=== PATIENT | female | born 1940 | race Caucasian/White ===

== ENCOUNTER 2019-10-09 02:06 | Inpatient (IN) ==
[2019-10-09 02:33] LABS: URINE SOURCE CATH
--- NOTE | 2019-10-09 02:33 | PROVIDER DOCUMENTATION ---
HPI-Neurological Disorder - General Stated Complaint: seizure Time Seen by Provider: 10/09/19 02:17 Source: family Unable to obtain history due to:: altered Allergies/Adverse Reactions: Patient Allergies Allergy/AdvReac Type Severity Reaction Status Date / Time No Known Allergies Allergy Verified 10/09/19 02:37 Home Medications: Home Medication List Medication Instructions Recorded Confirmed Last Taken Type Aspirin 325 mg PO DAILY 10/09/19 10/09/19 Unknown History Atorvastatin Calcium [Lipitor] 10 mg PO DAILY 10/09/19 10/09/19 Unknown History Escitalopram [Lexapro] 20 mg PO DAILY 10/09/19 10/09/19 Unknown History Memantine HCl [Namenda] 10 mg PO BID 10/09/19 10/09/19 Unknown History Metoprolol Succinate E.r. [Toprol 100 mg PO DAILY 10/09/19 10/09/19 Unknown History Xl] Pantoprazole [Protonix] 40 mg PO DAILY@0700 10/09/19 10/09/19 Unknown History Quetiapine Fumarate [Seroquel] 100 mg PO QHS 10/09/19 10/09/19 Unknown History Ranolazine [Ranexa] 1,000 mg PO BID 10/09/19 10/09/19 Unknown History Spironolactone [Aldactone] 25 mg PO DAILY 10/09/19 10/09/19 Unknown History - History of Present Illness-Neuro Nature of Presenting Problem: This 79 yo female presents via EMS after her sister was awakened by moaning and shaking. She thinks that she might have had a seizure. She would not respond initially, but started to come around when EMS arrived. She has some dementia and lives with her daughter in [place], but comes to stay with her sister at times. Severity: reports: severe Onset/Duration: reports: just prior to arrival Timing: reports: still present, improving Context: reports: found unresponsive by family Approximate time patient was last seen normal?: 21:00 Character of Altered Mental Status: reports: decreased responsiveness Any recent trauma/injury?: reports: none Character of Deficits: reports: impaired speech Gait Baseline: walks without assistance Similar Symptoms Previously?: No Recently seen or treated by another doctor?: No - Seizure First time to have a seizure?: Yes Witnessed seizure?: Yes (shaking and not responding) Episode details: reports: unknown duration Approximate time seizures began?: 02:00 Episode Frequency: no prior episodes Status Epilepticus: No Character of Seizure: reports: generalized shaking all over. denies: incontinent of urine, incontinent of stool Post-ictal Symptoms: reports: confusion Seizure related injury: none Review of Systems - Adult - REVIEW OF SYSTEMS - ADULT ROS:: unobtainable per condition Constitutional: reports: no symptoms reported Past History - Adult - PAST MEDICAL HISTORY-ADULT Review of Records: reports: Nursing Assessment Review Cardiovascular: reports: A-Fib, pacemaker Respiratory: reports: denies history Gastrointestinal: reports: denies history Genitourinary: reports: denies history Musculoskeletal: reports: arthritis Neurological: reports: Alzheimer's Psychiatric: reports: denies history Endocrine/Immune: reports: denies history Physical Exam- Neurological - Physical Exam-Neuro Initial Vital Signs Reviewed: Yes General Appearance: lethargic, slow to respond Eye Exam: bilateral eye: PERRL, EOMI HENMT: normocephalic/atraumatic, moist mucous membranes, normal ENT inspection, TMs normal, pharynx normal Head Injury: no evidence of injury Neck: non-tender, full range of motion, supple Respiratory: chest non-tender, lungs clear, normal breath sounds Cardiovascular: normal peripheral pulses, regular rate, rhythm, no edema Abdominal Exam: normal bowel sounds, non tender, soft, no organomegaly, no pulsatile mass Lymphatic: no adenopathy wireless consultant Exam: normal hearing Coordination/Gait: other (unable to assess) Motor/Sensory: other (unable to assess) Neurologic: other (unable to assess) Integumentary: normal color, normal turgor, warm/dry - [place]ow Coma Scale Best Eye Response: (1) no response Best Verbal Response: (1) no verbal response Best Motor Response: (5) localizes to pain Progress - PLAN OF CARE/RESULTS Progress/Plan/Lab Results: Vital Signs - 8 hr 10/09/19 02:15 10/09/19 02:19 10/09/19 02:23 Temperature Pulse Rate 99 H 75 76 Respiratory Rate 18 21 Blood Pressure 179/87 173/103 O2 Sat by Pulse Oximetry 95 10/09/19 02:26 10/09/19 02:30 10/09/19 02:45 Temperature 97.9 F Pulse Rate 75 74 91 H Respiratory Rate 21 19 18 Blood Pressure 173/103 O2 Sat by Pulse Oximetry 96 96 Laboratory Results - last 24 hr 10/09/19 10/09/19 10/09/19 02:27 02:27 02:27 WBC RBC Hgb Hct MCV MCH MCHC RDW Std Deviation Plt Count MPV Immature Gran % (Auto) Neut % (Auto) Lymph % (Auto) [place] % (Auto) Eos % (Auto) Baso % (Auto) Immature Gran # (Auto) Neut # (Auto) Lymph # (Auto) [place] # (Auto) Eos # (Auto) Baso # (Auto) Specimen Type Sample Site pH pCO2 pO2 HCO3 Base Excess Oxyhemoglobin ABG O2 Sat (Calculated) ABG O2 Saturation ABG Carboxyhemoglobin ABG Methemoglobin Nicola Test A-a O2 Difference Total Hemoglobin Lactate Liter Flow Blood Gas Modality FiO2 % Sodium 141 Potassium 4.5 Chloride 103 Carbon Dioxide 21 L Anion Gap 17 BUN 16 Creatinine 1.3 H Estimated GFR/1.73 m2 39 BUN/Creatinine Ratio 12 Glucose 169 H Calculated Osmolality 286 Calcium 8.6 L Total Bilirubin 0.26 AST 12 ALT 7 L Alkaline Phosphatase 133 H Ammonia Creatine Kinase 18 L Troponin T < 0.010 Total Protein 5.6 L Albumin 3.8 Globulin 1.8 Albumin/Globulin Ratio 2.1 Urine Source CATH Urine Color YELLOW Urine Turbidity CLEAR Urine pH 5.5 Ur Specific [place] 1.006 Urine Protein NEGATIVE Ur Glucose (Stick) NEGATIVE Ur Ketones (Stick) NEGATIVE Urine Blood NEGATIVE Urine Nitrite NEGATIVE Urine Bilirubin NEGATIVE Urobilinogen Dipstick NORMAL Urine Leukocytes NEGATIVE Urine WBC (Auto) <10 Urine RBC (Auto) <10 U Epithel Cells (Auto) <10 Urine Bacteria (Auto) NEGATIVE 10/09/19 10/09/19 10/09/19 02:53 03:35 03:35 WBC 13.13 H RBC 4.39 Hgb 13.2 Hct 41.4 MCV 94.3 MCH 30.1 MCHC 31.9 L RDW Std Deviation 12.8 Plt Count 143 MPV 11.1 H Immature Gran % (Auto) 0.4 Neut % (Auto) 66.5 Lymph % (Auto) 23.9 [place] % (Auto) 5.5 Eos % (Auto) 3.5 Baso % (Auto) 0.2 Immature Gran # (Auto) 0.05 H Neut # (Auto) 8.74 H Lymph # (Auto) 3.14 [place] # (Auto) 0.72 H Eos # (Auto) 0.46 Baso # (Auto) 0.02 Specimen Type ARTERIAL Sample Site R BRACHIAL pH 7.26 L pCO2 50 H pO2 76 HCO3 21.0 Base Excess -4.9 L Oxyhemoglobin 94.1 L ABG O2 Sat (Calculated) 16.7 ABG O2 Saturation 96.5 ABG Carboxyhemoglobin 1.50 ABG Methemoglobin 1.0 Nicola Test YES A-a O2 Difference 90.0 Total Hemoglobin 12.6 Lactate 4.40 H* Liter Flow 3.0 Blood Gas Modality [place]A FiO2 % 32.0 Sodium Potassium Chloride Carbon Dioxide Anion Gap BUN Creatinine Estimated GFR/1.73 m2 BUN/Creatinine Ratio Glucose Calculated Osmolality Calcium Total Bilirubin AST ALT Alkaline Phosphatase Ammonia 30 Creatine Kinase Troponin T Total Protein Albumin Globulin Albumin/Globulin Ratio Urine Source Urine Color Urine Turbidity Urine pH Ur Specific [place] Urine Protein Ur Glucose (Stick) Ur Ketones (Stick) Urine Blood Urine Nitrite Urine Bilirubin Urobilinogen Dipstick Urine Leukocytes Urine WBC (Auto) Urine RBC (Auto) U Epithel Cells (Auto) Urine Bacteria (Auto) Orders Category Date Time Status CHEST-PORTABLE [RAD] Stat Exams 10/09/19 02:[address] HEAD W/O CONTRAST [CT] Stat Exams 10/09/19 02:24 Taken ABG [RESP] Routine Lab 10/09/19 03:35 Completed AMMONIA [CHEM] Stat Lab 10/09/19 03:35 Completed CBC WITH ELECTRONIC DIFF [HEME] Stat Lab 10/09/19 02:53 Completed CK PROFILE [SP CHEM] Stat Lab 10/09/19 02:27 Completed COMPREHENSIVE METABOLIC PANEL [CHEM] Stat Lab 10/09/19 02:27 Completed MAGNESIUM [CHEM] Stat Lab 10/09/19 04:04 Ordered TROPONIN T Stat Lab 10/09/19 02:27 Completed UA NIMS W/REFLEX CULT [URINALYSIS] Stat Lab 10/09/19 02:27 Completed 0.9% Sodium Chloride Inj [Ns] 1,000 ml Med 10/09/19 03:47 Active IV 999 mls/hr Levetiracetam [Keppra] 500 mg Med 10/09/19 03:10 Discontinued 0.9% Sodium Chloride Inj [Ns] 100 ml IV NOW Lorazepam [Ativan] Med 10/09/19 03:01 Discontinued 2 mg IV NOW ONE EKG [EKG] Stat Ther 10/09/19 02:38 Ordered Result Diagrams: 10/09/19 02:53 10/09/19 02:27 - REASSESSMENT Reassessment #1 Time Reassessed: 02:48 Status: worsening (Patient had jerking movements in CT whitnessed by the calibration technician. She is postictal) - EKG 1 Time of EKG reading by physician:: 02:54 EKG Read and Signed by:: Angel Rosales EKG Interpretation (*Must complete 3 of following elements*): Abnormal Rate: 74 Rhythm: paced [place]: left ST Wave: non-specific ST changes Prior EKG Comparison: no prior EKG - CONSULTS/PCP/HOSPITALIST Notification #1 *Consult/PCP/Hospitalist*: Dr Esquivel Time Discussed: 04:10 Consult Disposition: Will see in ED Departure - Departure Date of Disposition Decision: 10/09/19 Time of Disposition Decision: 04:09 DIAGNOSIS: New onset seizure Disposition: ADMITTED INPATIENT 09 Certified Medical Emergency: Emergent Condition: Fair Referrals and Follow-Ups: None,PCP [Primary Care Provider] - - Critical Care Note This patient required my direct & personal management of CC.: Yes Total Time (mins): 42 Critical Care Statement: This patient required my direct personal management to treat or rule out processes, the absence of which, could potentiallly result in sudden, clinically significant life or limb threatening deterioration. Attestation - Physician/ CRISTIAN Attestation Patient care was provided by Advanced Practice Provider:: No The physician spent face to face time with patient:: Yes Advanced Practice Provider documentation review:: Supervising physician onsite and consulted in the evaluation and care of this patient. The physician did have a face to face encounter with the patient.
[2019-10-09 02:44] LABS: BILIRUBIN URINE NEGATIVE (NEGATIVE); BLOOD URINE NEGATIVE (NEGATIVE); COLOR YELLOW; GLUCOSE URINE NEGATIVE (NEGATIVE); KETONE URINE NEGATIVE (NEGATIVE); LEUKOCYTES URINE NEGATIVE (NEGATIVE); NITRITE URINE NEGATIVE (NEGATIVE); PH URINE 5.5; PROTEIN URINE NEGATIVE (NEGATIVE); SP GRAVITY URINE 1.006; TURBIDITY URINE CLEAR (CLEAR); UROBILINOGEN URINE NORMAL (NORMAL)
[2019-10-09 02:46] LABS: UR EPITHELIAL CELLS <10 /HPF (<10); URINE BACTERIA NEGATIVE /HPF; URINE RBC <10 /HPF (<10); URINE WBC <10 /HPF (<10)
[2019-10-09] MEDS ORDERED: ATIVAN IV ONE (03:01)
[2019-10-09 03:05] LABS: ALB/GLOB RATIO 2.1; ALBUMIN 3.8 g/dL (3.5-5.0); CALCIUM 8.6 mg/dL (8.8-10.2); CREATININE 1.3 mg/dL (0.5-0.9); POTASSIUM 4.5 mmol/L (3.5-5.1); TOTAL BILIRUBIN 0.26 mg/dL (0.20-1.00); TOTAL PROTEIN 5.6 g/dL (6.3-8.3)
[2019-10-09] MEDS ORDERED: KEPPRA 500 MG in NS 100 ML IV ONE (03:10)
[2019-10-09 03:26] LABS: BASO# 0.02 X1000 (0.0-0.2); BASO% 0.2 % (0.0-0.8); EOS# 0.46 X1000 (0.0-0.7); EOS% 3.5 % (0.0-10.0); HEMATOCRIT 41.4 % (37.0-47.0); HEMOGLOBIN 13.2 g/dL (12.0-16.0); IMM GRAN# 0.05 X1000 (0.0-0.04); IMM GRAN% 0.4 % (0.0-0.5); LYMPH# 3.14 X1000 (1.2-3.4); LYMPH% 23.9 % (20.5-51.1); MCH 30.1 PG (27-31); MCHC 31.9 g/dL (33-37); MCV 94.3 FL (81-99); MONO# 0.72 X1000 (0.11-0.59); MONO% 5.5 % (1.7-9.3); MPV 11.1 FL (7.4-10.4); NEUT# 8.74 X1000 (1.4-6.5); NEUT% 66.5 % (42.2-75.2); PLT 143 X1000 (130-400); RBC 4.39 XMIL (4.2-5.4); RDW 12.8 % (11.5-14.5); WBC 13.13 X1000 (4.8-10.8)
[2019-10-09 03:44] LABS: ALLEN TEST YES; BE -4.9 mmoll (-3.0-3.0); BLOOD TYPE ARTERIAL; O2(CT) 16.7 mL/dL (15.0-23.0); O2HB 94.1 % (95.0-99.0); PCO2(98.6) 50 mmHg (35-45); PO2(98.6) 76 mmHg (60-100); SAMPLE BLOOD; SAO2 96.5 % (95.0-100.0); THB 12.6 g/dL (11.5-17.4); pH(98.6) 7.26 (7.35-7.45)
[2019-10-09 03:46] LABS: MODALITY CANNULA
[2019-10-09] MEDS ORDERED: NS 1,000 ML IV ONE (03:47)
[2019-10-09] MEDS ORDERED: ZOFRAN IV PRN (04:29)
[2019-10-09 04:57] LABS: INR 1.1; PROTIME 14.3 Seconds (11.0-16.0)
[2019-10-09 04:58] LABS: PTT 27.3 Seconds (22.3-41.8)
[2019-10-09 05:09] LABS: UR AMPHETAMINES QUAL NONE DETECTED (NONE DETECT); UR BARBITUATES QUAL NONE DETECTED (NONE DETECT); UR BENZODIAZEPIN QUAL NONE DETECTED (NONE DETECT); UR CANNABINOIDS QUAL NONE DETECTED (NONE DETECT); UR COCAINE QUAL NONE DETECTED (NONE DETECT); UR METHADONE QUAL NONE DETECTED (NONE DETECT); UR OPIATES QUAL NONE DETECTED (NONE DETECT); UR OXYCODONE QUAL NONE DETECTED (NONE DETECT); UR PCP QUAL NONE DETECTED (NONE DETECT)
[2019-10-09] MEDS ORDERED: SODIUM CHLORIDE 0.9% INJ SCH (06:56)
[2019-10-09] MEDS ORDERED: ATIVAN IV PRN (06:56)
--- NOTE | 2019-10-09 07:10 | EKG Report ---
Test Performed on : 10/09/2019 02:51:40 AM Test Reason : altered mental status Blood Pressure : / mmHG Vent. Rate : 074 BPM Atrial Rate : 074 BPM P-R Int : 190 ms QRS Dur : 192 ms QT Int : 496 ms P-R-T Axes : 060 -69 098 degrees QTc Int : 550 ms Atrial-paced rhythm Left axis deviation Nonspecific intraventricular block Possible Lateral infarct , age undetermined Abnormal ECG No previous ECGs available Unconfirmed Result
[2019-10-09] MEDS ORDERED: TYLENOL PR PRN (07:38)
[2019-10-09] MEDS ORDERED: NS 1,000 ML IV SCH (07:45)
--- NOTE | 2019-10-09 08:47 | Diag Imaging Result Doc PS360 ---
CHEST-PORTABLE - 10/09/2019 INDICATION: altered mental status COMPARISON: None FINDINGS: There is a left-sided dual-chamber pacemaker in good position. Heart size is borderline. Lung volumes are severely low. There is diffuse pulmonary vascular congestion. There may be some early interstitial pulmonary edema. No large pleural effusion. IMPRESSION: Pulmonary vascular congestion and trace interstitial pulmonary edema. Electronically signed by Dwayne Corbett 10/09/2019 8:45 AM
--- NOTE | 2019-10-09 09:02 | Diag Imaging Result Doc PS360 ---
CT HEAD W/O CONTRAST - 10/09/2019 INDICATION: altered mental status COMPARISON: None FINDINGS: The ventricles and sulci are normal in size and contour. There is moderate patchy periventricular cerebral white matter lucency compatible with chronic microvascular ischemia. No intracranial mass or hemorrhage. The skull is intact. The sinuses, mastoids, and middle ears are clear. IMPRESSION: No acute process. This exam was performed using automated exposure control, adjustment of mA or kV according to patient size, and/or use of iterative reconstruction technique Electronically signed by Dwayne Corbett 10/09/2019 9:00 AM
[2019-10-09] MEDS: PROTONIX IV SCH (09:07)
[2019-10-09] MEDS: TOPROL XL PO SCH (10:45)
[2019-10-09] MEDS: ALDACTONE PO SCH (10:45)
--- NOTE | 2019-10-09 11:14 | PROGRESS NOTE ---
DATE: 10/09/2019 SUBJECTIVE: This morning, Ms. Randhawa refers to be doing well. Ms. Randhawa is a resident of the [facility], who came to visit her sister Thursday to spend some time. I understand she has a history of hypertension, coronary artery disease, severe atrial fibrillation in the past, status post pacemaker, and dementia. Apparently, she has had also episode of seizure in the past. The sister is not 100% sure how many times. She recalls only one time, however. In any case, last night, both of them were sleeping, and the sister heard Ms. Randhawa shouting and moaning. When she opened her eyes to see what was going on, Ms. Randhawa was shaking all over her body, which according to the sister, it took about 2 minutes. After that, Ms. Randhawa became unresponsive and would not talk. That also lasted for about 5 minutes. Eventually, she was able to nod her head to whether she wanted to be transported to the hospital. She became fully awake and aware in the hospital. The sister also refers that Ms. Randhawa did have a urinary sphincter incontinence during the episode. No bowel movement. This morning, Ms. Randhawa referred to be feeling well. She does not really remember what happened last night. She does not remember how she came to the hospital. She still thinks she is in a hospital somewhere in [place]. OBJECTIVE: Vital Signs: Blood pressure is 173/103, pulse of 71, respirations 18, temperature is 97.9 degrees, the patient is saturating 93% on 3 L. General: Ms. Randhawa is an 79-year-old, elderly, female. She is in bed. No distress. HEENT: Mucosa is slightly dry. Anicteric. Acyanotic. Neck: Supple. Chest: Good air entry bilaterally. There were no crepitations, no rhonchi. Cardiovascular: Irregularly irregular, but no murmurs. Abdomen: Soft, nontender. Bowel sounds present. Extremities: No pedal edema. PEDIATRIC SPEECH THERAPIST: The patient is awake, alert, oriented to person, disoriented to place and time. She is very conversational and very polite. LABORATORY DATA: WBC is 13.13. The rest of CBC is unremarkable. Chemistry is also reviewed. Creatinine is 1.3. We do not have previous labs to compare. IMAGING STUDIES: Chest x-ray did show pulmonary vascular congestion and trace interstitial pulmonary edema. The CT scan of the head showed no acute pathology. The patient's lactate was about 4.4 on admission. ASSESSMENT: 1. Possible seizure episode. Ms. Randhawa's sister is given a description which sounds like a seizure. It appears this is probably the second time Ms. Randhawa has had this episode. She is not on any antiseizure medication that I know of, reviewing her medication list. I understand she was prescribed Ativan a couple months ago, but she has not been taking this for the past 3 months at least. She has not had any more episode of seizures during the hospital stay. We are going to continue to observe her in the hospital for another 24 hours under seizure precautions. We will get an electroencephalogram, and we will get Neurology to evaluate her. Unfortunately, Ms. Randhawa has a pacemaker, which precludes her from being able to do an MRI. 2. Uncontrolled hypertension. We will start her on her home medications. 3. History of coronary artery disease. The patient is on metoprolol and Ranexa. We will restart her back. 4. Previous history of atrial fibrillation, status post pacemaker. 5. Situational depression. We will restart her back on her Lexapro and quetiapine. 6. Dementia. The patient is on memantine. 7. Renal failure. Unsure of the duration and etiology. For now, the patient looks remarkably dry. We are going to hydrate her, and repeat her renal function test. 8. Lactic acidosis, most likely due to hypoperfusion during the seizure attack. Will repeat this tomorrow morning once the patient is well hydrated. 9. Clinical volume depletion. Will continue fluid resuscitation. 10. Status post pacemaker. Aware. cc: Adonay Murphy MD
--- NOTE | 2019-10-09 13:27 | HISTORY AND PHYSICAL ---
PRIMARY CARE PHYSICIAN: The patient does have an out of town primary care physician in [place], [place]. CHIEF COMPLAINT: Possible seizure-like activity. HISTORY OF PRESENT ILLNESS: Ms. Randhawa is an 79-year-old female who is here visiting her sister from [place], [place]. Her sister states that when her sister wants to visit her, that she will drive to [place], pick her up, and bring her back here to stay for a while until she decides she wants to go back home. She reported that she went and picked her up and brought her back to [place], and she has been staying with her for a couple of days now. Since the patient's arrival here in [place], her sister reports that other than having some mild dementia symptoms, that the patient has been at her baseline, that she has not reported or complained of any symptoms. She had not complained of not feeling well. She states they spent the day today sitting around and watching football. She reported that this evening, they had laid down to go to bed, and that she heard her sister making some unusual noises, and when she looked over, she was shaking all over. She also did report that the patient did have loss of her bladder as well. She called an ambulance. EMS reported that the patient had witnessed seizure-like activity from what I understand, as well as the patient, after arrival to the emergency department, did have a seizure while receiving a CT of the head. They did administer 2 mg of Ativan IV push. She also did receive Keppra 500 mg IV as well. According to the patient's sister, she does not have any known history, to her knowledge, of any seizure disorder or any previous history of seizures. She denied her having any known history of stroke. Her sister did mention that within the last few months, that she had been admitted at [facility] in [place], [place], for some spells that she was having, so she was unsure of the details, and could not confirm whether or not this was possibly related to seizures. The patient's sister did have all of her home medications with her, and she does not have any seizure medications on this list. In her external medication history, I did notice that the patient has had a prescription for Xanax 1 mg tablet that she has been getting filled monthly since June, though this medication was not with her prescription bottles in the bag at bedside. A little later after my assessment, I was able to go back and talk with the patient. She was becoming more arousable at that time, and I did ask her about this medication. The patient states that she does take Xanax pretty regularly, though does not take it every day, though she states she accidentally left this medication in [place], and has not had it for a few days since she has been here in [place]. Upon my initial evaluation in the ER, the patient was still pretty drowsy. She had received Ativan previously. She was arousable by light tactile stimulation and verbal calling of her name. She was alert and oriented to person only at the time. She did think she was in [place], [place], and thought that it was October instead of September, though did correctly identify her sister at the bedside, and was able to follow commands and answer simple questions. Throughout my examination and upon reexamination about an hour later, the patient's neurological status does continue to improve. She is becoming more alert. She did have a slightly elevated white blood cell count of 13,130, but does not have a known source of infection at this time. Urinalysis was negative for any infection. Chest x-ray did not show any acute abnormality, though we are awaiting official radiology over-read. Her CT of the head was negative for any acute intracranial abnormalities. Electrolytes were within normal limits. The patient did have a slightly elevated creatinine of 1.3 and a GFR of 39, though I am unsure at this time whether or not she does have underlying chronic kidney disease or not. The patient was able to tell me that she was not hurting anywhere, that she had not had any chest pain, shortness of breath, abdominal pain, nausea, vomiting, or diarrhea. She denied having any dysuria as well. She did have equal muscle strength and hand grasp bilaterally, though did have some generalized weakness noted. The patient will be admitted to ICU for further treatment and evaluation. REVIEW OF SYSTEMS: We did perform a review of systems with the patient, though this was slightly limited due to her current condition and mentation. Please see above HPI for pertinent reported symptoms. We were unable to complete a review of systems with the patient at this time. This may need to be reviewed again when she is more alert. PAST MEDICAL HISTORY: 1. History of atrial fibrillation. 2. History of pacemaker placement. 3. History of hypertension. 4. Anxiety. 5. Dementia. 6. History of spinal stenosis. 7. Her sister reports that she is supposed to be wearing BiPAP or CPAP at night, though does not. She could not confirm whether or not this was secondary to a history of sleep apnea. PAST SURGICAL HISTORY: 1. Cataract removal. 2. Hysterectomy. 3. Total knee replacement. 4. Pacemaker placement. 5. History of back surgery secondary to spinal stenosis. SOCIAL HISTORY: The patient has no known history of tobacco, alcohol, or illicit drug use. She does live with family in [place], [place]. From what I understand, she lives with her daughter, whose name is Vasile. Her sister was present at bedside during my examination. Her name is Mercedes. FAMILY HISTORY: Positive for her father having a history of heart disease. Her mother at a young age secondary to reported female cancer, though the patient's sister could not confirm whether or not this was ovarian, uterine, or cervical cancer. She did have a brother who had cirrhosis of the liver and had a history of esophageal varices, who in December. She had another brother who secondary to a gunshot wound. ALLERGIES: The patient has no known allergies. HOME MEDICATIONS: 1. Aspirin 325 mg p.o. daily. 2. Atorvastatin 10 mg p.o. daily. 3. Lexapro 20 mg p.o. daily. 4. Metoprolol succinate 100 mg p.o. daily. 5. Protonix 40 mg p.o. daily. 6. Seroquel 100 mg p.o. at bedtime. 7. Ranexa 100 mg p.o. b.i.d. 8. Xanax 1 mg tablet p.o. as directed. The patient reported that she does not take this medication every day, though does take it pretty regularly. DIAGNOSTIC DATA: White blood cell count is 13,130, hemoglobin 13.2, hematocrit is 41.4, platelet count is 143,000. PT 14.3, INR 1.1, PTT is 27.3. Sodium 141, potassium 4.5, chloride 103, serum bicarb is 21, BUN 16, creatinine 1.3, with a GFR of 39, glucose 169, calcium 8.6. Magnesium 1.6. Liver function tests within normal limits, except for alkaline phosphatase is slightly elevated at 133. Ammonia level was 30. CK 18. Troponin less than 0.01. Arterial blood gases were obtained on FiO2 of 32%: PH 7.26, pCO2 of 50, PO2 of 76, HC03 was 21, base excess is - 4.9, with an O2 saturation of 96.5. Urine drug screen was negative. Urinalysis was obtained via catheter, which was negative for protein, glucose, ketones, blood, nitrites, leukocytes, white blood cells, or bacteria. Chest x-ray did show a left-sided pacemaker. There do not appear to be any acute abnormalities, though we are awaiting official radiology over-read. CT of the head did not show any acute intracranial hemorrhage or process. There was no intracranial mass identified. There was some age-related cerebral volume loss and bilateral white matter disease, likely ischemic, microvascular in nature. EKG did show an atrial paced rhythm with a left axis deviation at a rate of 74 with a QTc of 550. PHYSICAL EXAMINATION: VITAL SIGNS: Temperature 97.9 degrees, heart rate 75, respirations 21, blood pressure is 173/103 with a MAP of 126, oxygen saturation is 96% with nasal cannula at 4 L. GENERAL: Ms. Randhawa is an 79-year-old, elderly, female. She was resting in the ER stretcher. She still is somewhat lethargic at this time. She is arousable with light tactile stimulation and verbal calling of her name. The patient has recently been given Ativan due to seizure activity. Upon awakening her, she is alert and oriented to person only. She thought she was in [place], [place], and that the month was October, though she did correctly identify her sister at bedside, and was able to answer some simple questions and follow some simple commands. HEENT: Head is atraumatic, normocephalic. Pupils are equal, round, and reactive to light, though were 4 mm bilaterally and slightly sluggish. Oral mucosa is slightly dry. Oropharynx is clear. NECK: Supple. Trachea midline. No carotid bruits noted upon auscultation bilaterally. CARDIOVASCULAR: The patient has S1, S2. No murmurs or gallops were appreciated, with a regular rate and rhythm. PULMONARY: The patient has symmetrical chest expansion bilaterally. Lung sounds are clear to auscultation in bilateral full torres. ABDOMEN: Soft, nondistended, nontender. Bowel sounds are present in all 4 quadrants and were normoactive. EXTREMITIES: No cyanosis or edema noted. Pulse, motor and sensitivity were intact in all extremities. Radial and pedal pulses were 2+ bilaterally. INTEGUMENTARY: The patient's skin is pink, warm, and dry. NEUROLOGICAL: The patient is alert and oriented to person only at this time. She was still pretty drowsy/lethargic, though was arousable with light tactile stimulation and verbal calling of her name. She, once awoken, was able to answer some simple questions and follows some simple commands. She is able to move all extremities. She did not have any facial droop noted. She had equal muscle strength and hand grasps bilaterally, though she does appear to have some generalized weakness. At this time though, her neurological exam is still somewhat limited due to her current condition and mentation. ASSESSMENT AND PLAN: 1. New-onset seizures. The patient's sister did report seizure-like activity at home, for which she did have loss of bladder, though she did have a witnessed seizure in the emergency room as well. The patient does not have a known history of seizures or stroke. She was recently admitted to a hospital in the last few months in [place], [place], for what her sister described was some spells/episodes, though she was unsure what they determined were causing these complications. We have requested those records, though this does need to be followed up on to make sure that we can obtain possibly a better history on the patient. There is a possibility of benzodiazepine withdrawal given that she does report that she fairly regularly takes Xanax, and did accidentally leave this in [place], and has not had it for a few days. We will also evaluate her for possible stroke as well. Unfortunately, the patient is not able to get an MRI due to she does have a pacemaker, though we will do carotid ultrasound and echocardiogram as well. She will be nothing by mouth until she becomes more alert. We have placed her on seizure and aspiration precautions. Will do as needed Ativan for seizures as well. We have placed a consult with Dr. Petersen with Neurology. Will await their evaluation and further recommendations for management. 2. Leukocytosis. The patient does not have any known source of infection at this time. This could be reactive given her seizure activity. We will continue to monitor closely. 3. History of atrial fibrillation. 4. History of pacemaker placement. 5. Acute kidney injury. At this time, we are uncertain of whether or not the patient does have underlying chronic kidney disease. She did receive a 1 liter normal saline bolus in the emergency room. We will continue with some gentle intravenous hydration. Will avoid nephrotoxic medications and renally-dosed medicines as necessary. 6. Deep venous thrombosis prophylaxis will be provided with sequential compression devices. The patient has been placed in the intensive care unit for close monitoring. We will do continuous cardiac telemetry and pulse oximetry. Will do vital signs per intensive care unit protocol. Will do every 4 hour neurologic checks. She is on aspiration and seizure precautions. She is nothing by mouth at this time until she becomes more alert. Further orders and recommendations pending hospital course, diagnostic studies, and physician evaluation. Dictated by JEANNINE Wolff for Flaquito Esquivel MD cc: Flaquito Esquivel MD Patient presenting with possible seizure-like activity. Diagnosed with New onset seizures. Neurology consulted. I agree with the assessment and plan of the JEANNINE. Dr. Esquivel. [facility]
[2019-10-09] MEDS: RANEXA PO SCH (20:37)
[2019-10-09] MEDS: SEROQUEL PO SCH (20:39)
[2019-10-09] MEDS: NAMENDA PO SCH (20:39)
[2019-10-09] MEDS: LIPITOR PO SCH (20:39)
[2019-10-10] MEDS: PROTONIX IV SCH (06:07)
[2019-10-10 06:13] LABS: HEMATOCRIT 35.2 % (37.0-47.0); HEMOGLOBIN 11.2 g/dL (12.0-16.0); MCH 30.5 PG (27-31); MCHC 31.8 g/dL (33-37); MCV 95.9 FL (81-99); MPV 10.5 FL (7.4-10.4); RBC 3.67 XMIL (4.2-5.4); WBC 7.76 X1000 (4.8-10.8)
[2019-10-10] MEDS: PROTONIX PO SCH (06:44)
[2019-10-10 06:53] LABS: ALBUMIN 3.1 g/dL (3.5-5.0); CALCIUM 8.7 mg/dL (8.8-10.2); CREATININE 1.1 mg/dL (0.5-0.9); POTASSIUM 3.7 mmol/L (3.5-5.1)
--- NOTE | 2019-10-10 07:32 | PROGRESS NOTE ---
DATE: 10/10/2019 SUBJECTIVE: This morning, Ms. Randhawa referred to be doing a lot better. Denies any seizures. Per the nursing staff, she seems to be more coherent today than on admission. OBJECTIVE: Vital Signs: Blood pressure is 101/56, pulse of 75, respirations are 14, temperature is 98.9 degrees. General Examination: Ms. Randhawa is an 79-year-old, female. She is in bed. No distress. HEENT: Mucosa is pink and moist. Anicteric. Acyanotic. Neck: Supple. Chest: Good air entry bilaterally. There were no crepitations, no rhonchi. Cardiovascular: Irregularly irregular but no murmurs. There is a pacemaker generator pocket on the left anterior chest wall. GI: Abdomen is soft, nontender. Bowel sounds are present. Extremities: No pedal edema. IT RISK ADVISOR: The patient is awake, alert, oriented to person, still disoriented to place and time but she will follow basic commands. Laboratory Data: WBCs 7.71, hemoglobin is 11.2, platelet count of 194,000. Still pending chemistry. Patient's lactate is 0.8. CURRENT MEDICATIONS: Include: 1. Aspirin 325 p.o. daily. 2. Lipitor 10 mg p.o. at bedtime. 3. Lexapro 20 mg p.o. daily. 4. P.r.n. Ativan. 5. Namenda 10 mg b.i.d. 6. Metoprolol 100 mg daily. 7. Protonix 40 mg p.o. daily. 8. Seroquel 100 mg p.o. at bedtime. 9. Ranexa 1000 mg b.i.d. ASSESSMENT: 1. History of seizure disorder with breakthrough seizure. The patient has been observed during the hospital course, has not had any more seizures. She is currently not on any form of seizure medications. We are pending neurology evaluation. It appears that Ms. Randhawa has never been started on any seizure medication at all, per her history. EEG has been ordered and neurology consult is pending. 2. Uncontrolled hypertension on admission, improved. 3. History of coronary artery disease. The patient is currently on metoprolol and Ranexa. We will continue with her home medications. 4. History of atrial fibrillation. The patient is status post pacemaker. 5. Situational depression and anxiety disorder. 6. Dementia. Patient is on medications. 7. Clinical volume depletion on presentation, improved. Lactate has normalized. PLAN: In general, we are going to transfer Ms. Randhawa from the ICU to the medical floor. She is still going to be under seizure precautions. We will start her on a healthy heart diet. She is pending an EEG and neurology consult today. Disposition will depend on further recommendations from neurology. I think, in the next 24 hours, Ms. Randhawa can potentially be discharged. cc: Adonay Murphy MD [facility]
[2019-10-10] MEDS: ASPIRIN PO SCH (08:53)
[2019-10-10] MEDS: ALDACTONE PO SCH (08:53)
[2019-10-10] MEDS: LEXAPRO PO SCH (08:53)
[2019-10-10] MEDS: RANEXA PO SCH ×2 (08:53→20:47)
[2019-10-10] MEDS: TOPROL XL PO SCH (08:53)
[2019-10-10] MEDS: NAMENDA PO SCH ×2 (08:53→20:46)
[2019-10-10] MEDS ORDERED: NEUTRA-PHOS PO SCH (09:00)
[2019-10-10] MEDS ORDERED: LEXAPRO PO SCH (09:00)
--- NOTE | 2019-10-10 16:10 | EEG REPORT ---
DATE: 10/10/2019 REFERRING PHYSICIAN: Dr. Murphy. DEVELOPMENT ASSOCIATE: Ivett Bowens. BACKGROUND INFORMATION/TECHNIQUE: This is a digitally recorded routine EEG with video. HISTORY: 79-year-old female with history of seizure-like episodes. Dementia, atrial fibrillation, depression, anxiety, coronary disease and hypertension. She had a witnessed episode around 1 a.m. with moaning and jerking of the upper body. She was completely unresponsive for about 5 minutes. The patient does not recall the event. EEG is ordered to detect evidence of seizures. MEDICATIONS: Include p.r.n. lorazepam, Lexapro, Seroquel. EEG FINDINGS: This is a technically limited EEG due to persistent diffuse myogenic artifact necessitating heavy filtering. A posterior dominant alpha rhythm is not seen. The anterior background at maximal alertness consists of mixed alpha and beta range frequencies, rare intermixed theta. No definite persistent focal slowing. No epileptiform discharges. No seizures. Hyperventilation is not performed. Photic stimulation does not alter the record. No definite drowsiness patterns. Stage II sleep is not seen. EKG demonstrates regular intervals. IMPRESSION AND CLINICAL CORRELATION: Borderline abnormal, technically limited, routine EEG due to very mild diffuse slowing suggestive of a very mild nonspecific encephalopathy versus drowsiness. No epileptiform discharges or seizures seen on the current study. This does not rule out an underlying seizure disorder. Clinical correlation is recommended. cc: MD Adonay Brown MD [facility]
[2019-10-10] MEDS: KEPPRA PO SCH ×2 (19:07→20:46)
--- NOTE | 2019-10-10 19:53 | VASCULAR LAB ---
DATE: 10/09/2019 PROCEDURE PERFORMED: Bilateral carotid duplex. BASIN CLEANER: Genna. REQUESTING PROVIDER: JEANNINE Wolff INDICATION: New onset seizures and encephalopathy. FINDINGS: The bilateral carotid arteries are visualized along their course. In the right carotid bulb there is a broad based plaque. Similarly, In the left bulb and in the left common carotid artery there are broad based plaques. However, they do not cause elevation of velocities and would not correlate to a hemodynamically significant lesion. Vertebrals are antegrade bilaterally. SUMMARY: Mild atherosclerotic changes are noted in the bilateral carotid artery systems. cc: Maia Castillo MD
--- NOTE | 2019-10-10 20:12 | CONSULTATION ---
DATE OF CONSULTATION: 10/10/2019 REASON FOR CONSULT: Seizure. PRIMARY CARE PROVIDER: Dr. Berto Rubio at [facility] in [place]. HISTORY OF PRESENT ILLNESS: This is an 79-year-old, female with history of atrial fibrillation and pacemaker, dementia and hypertension. She was admitted yesterday for seizure- like event. History is from the patient's niece at the bedside and also from phone conversation with the patient's daughter with whom she lives in [place]. Apparently, the patient was well before the event. She was sleeping in the bed with her sister when all of a sudden the sister was awaken by some unusual noises. She looked over and saw that the patient was shaking all over. She had urinary incontinence. The event lasted a couple of minutes. EMS was called. The patient apparently had another witnessed seizure with EMS and another [address] She did receive 2 mg of IV Ativan and Keppra 500 mg IV. She was admitted and has not had further seizure. Head CT did not show acute findings. The patient gradually improved to her baseline. I called and spoke to the patient's daughter on the phone. She reports that the patient did have a very similar event in December or January of this year, also occurring in the middle of the night. She is unaware of events in between these 2. The patient was also evaluated for seizures at least 4 years ago. She cannot recall the circumstances of that evaluation. The patient did what sounds to be an EEG for a couple of days. She has never been on seizure medication. There are not focal neurologic symptoms reports. PAST MEDICAL HISTORY: Dementia, atrial fibrillation, pacemaker, hypertension, spinal stenosis. PAST SURGICAL HISTORY: Cataract surgery, knee replacements. FAMILY HISTORY: Positive for heart disease and cancer. SOCIAL HISTORY: No tobacco, alcohol or illicits. She lives with her daughter in [place]. She is here visiting her sister. She does not drive. ALLERGIES: Per the patient's daughter include sulfa and amiodarone. MEDICATIONS: Reviewed in the chart. Of note, she does have p.r.n. Xanax tablets. The daughter reports that she takes this maybe 1 tablet per month. REVIEW OF SYSTEMS: Balance of 12 conducted and is otherwise negative except that detailed in the HPI. PHYSICAL EXAMINATION: Vital Signs: Afebrile, blood pressure 116/64, pulse 74, respirations 13, 99% on room air. General: Ms. Randhawa is sitting up in a chair. She is awake, alert and attentive. She is oriented to self, niece, hospital. She thought she was in [place] initially, but then corrected. She said it was September, she was confused on the date and reported that her birthday was coming on [birth year], though, today is October 10. She could name the President with assistance. She did not know why she was in the hospital. Follows simple commands but not complex ones. HEENT: Pupils equal, round, and reactive. Gaze conjugate. Ocular movements full. Visual torres intact to direct confrontational testing. Face symmetric with equal activation. Facial sensation reported intact. Tongue is midline. Palate elevates symmetrically. Musculoskeletal: Shoulder shrug is full. Tone is equal in the limbs. Power is preserved in the arms and legs as tested without obvious focal deficit. Neurologic: She reports intact sensation to light touch in the arms and legs. Reflexes are symmetric 1 to 2+ at the wrists, knees, and ankles. No clonus. Plantar response is downgoing. [id number] is intact. Rapid alternating movements a bit slowed but symmetric bilaterally. I did not test her gait. DIAGNOSTICS: Head CT noncontrast showing no acute findings. Routine EEG was personally reviewed. Borderline abnormal due to very mild diffuse slowing suggestive of a very mild nonspecific encephalopathy versus drowsiness. No epileptiform discharges or seizures seen on the current study. White count 13 on admission now normalized. Lactate was 4.4, normal sodium and BUN and creatinine is 1.3 and today 1.1. Blood sugar 169 on admission. Calcium 8.7. Urinalysis clear. Toxicology negative. ASSESSMENT AND PLAN: The patient was admitted for 3 consecutive events, which sound to be consistent with seizure activity. There is a history of similar event. Earlier this year as well as a history of seizure evaluation about 4 or [address] of the head did not show acute findings. Unfortunately, she has a pacemaker and cannot have an MRI. I agree with telemetry monitoring. Based on current events and history there is indication to initiate antiepileptic medication. I will go ahead and start the patient on levetiracetam 500 mg p.o. b.i.d. That dose can be escalated when she follows up with her primary care physician if needed. She is likely to get higher blood concentration based on her mild renal insufficiency which is improving. Seizure precautions were advised. The patient does not drive. They were advised to call and schedule follow-up with patient's primary care physician Dr. Rubio. Thank you for the consultation. cc: Samra Urbina MD
--- NOTE | 2019-10-10 20:33 | ECHO REPORT ---
ORDER DATE: 10/09/2019 MEASUREMENTS: Septal thickness 1.0, left ventricular internal diameter in diastole 3.9, posterior wall thickness 1.0, left ventricular internal diameter in systole 2.4, aortic root 2.2, left atrium 3.8. SUMMARY: 1. Fair quality study. 2. Aortic valve is trileaflet and opens normally on 2-dimensional images. The peak gradient across the aortic valve is 10 to 15 mmHg. Mitral, tricuspid, and pulmonic valves are without evidence of structural abnormality with mild mitral regurgitation and mild tricuspid regurgitation. Estimated systolic PA pressure by Doppler is 35 to 40 mmHg. Aortic root is normal in size. 3. Normal left ventricular dimension is demonstrated. Estimated left ejection fraction appears to be at least 70%. No regional wall motion abnormalities are evident. Left atrium, right atrium and right ventricle are normal in size with normal right ventricular systolic function. Pacemaker lead is evident in the right ventricle. 4. No pericardial effusion. 5. Appearance of inferior vena cava suggests normal central venous pressure. CONCLUSIONS: 1. Mild mitral regurgitation. 2. Mild tricuspid regurgitation with estimated systolic PA pressure 35 to 40 mmHg. 3. Normal left ventricular systolic function without regional wall motion abnormalities are evident. 4. Pacemaker lead evident in right ventricle. cc: Noble Lua MD
[2019-10-10] MEDS: LIPITOR PO SCH (20:46)
[2019-10-10] MEDS: SEROQUEL PO SCH (20:47)
[2019-10-11] MEDS: LEXAPRO PO SCH (09:20)
[2019-10-11] MEDS: ASPIRIN PO SCH (09:20)
[2019-10-11] MEDS: KEPPRA PO SCH (09:21)
[2019-10-11] MEDS: PROTONIX PO SCH (09:21)
[2019-10-11] MEDS: NAMENDA PO SCH (09:21)
[2019-10-11] MEDS: RANEXA PO SCH (09:21)
[2019-10-11] MEDS: TOPROL XL PO SCH (09:21)
[2019-10-11] MEDS: ALDACTONE PO SCH (09:21)
[2019-10-11 11:21] VITALS: BP 131/59
--- NOTE | 2019-10-12 11:20 | DISCHARGE SUMMARY ---
ADMISSION DATE: 10/09/2019 DISCHARGE DATE: 10/11/2019 DISCHARGE DIAGNOSES: 1. Atypical seizure disorder. 2. Atrial fibrillation. 3. Acute kidney injury. CONSULTATIONS: Dr. Mahan. HISTORY AND HOSPITAL COURSE: Briefly, this is an 79-year-old female who is from out of town, visiting family, with mild dementia symptoms. She had witnessed seizure activity, and was brought in for evaluation. She was placed on Keppra. Neurology was consulted. Carotid Dopplers did not show significant pathology. Echo showed mild MR, but normal EF. Overall, the patient stabilized on Keppra. Dr. Mahan was consulted. She recommended Keppra. We will continue to follow her kidney function, stabilize her creatinine, and it went down to 1.1. On the day of discharge, she was neurologically intact, motivated to go home. CT was unremarkable. Dr. Mahan recommended to continue the Keppra at home, and discharge her on her other medications. OTHER DISCHARGE MEDICATIONS: Seroquel 100 daily, Aldactone 25 daily, aspirin 325 daily, Lexapro 20 daily, Lipitor 10 daily, Namenda 10 b.i.d., Protonix 40 daily, Ranexa 1 gram b.i.d., Toprol-XL 100 daily, and Keppra 500 b.i.d. FOLLOWUP: Follow up with her primary care neurologist at discharge. cc: Inderjit Dumont MD
== END 2019-10-11 13:32 | disposition home or self-care (01) | DRG 100 ==
LOC: SUPCPDRO → ED 02:06 → EDIPHOLD 07:21 → SUATTDRO 07:21 → ICU 16:25 → 3N 10-10 09:50
PROVIDERS: ATTEND Internal Medicine